=== PATIENT | female | born 1990 ===

== ENCOUNTER → 2022-06-30 | Outpatient (CLI) | payer OTHER ==
[2022-06-30 13:42] LABS: Hematocrit 42.2 % (33.0-51.0); Mean Corpuscular HGB 28.2 pg (26.0-34.0); Mean Corpuscular HGB Conc 33.2 g/dL (31.5-36.5); Mean Corpuscular Volume 85 fL (80-100); Mean Platelet Volume 10.3 fL (9.1-12.4); Platelet Count 299 K/mm3 (150-400); RDW Coefficient Variation 12.7 % (11.7-14.2); Red Blood Cell Count 4.96 M/mm3 (3.80-5.20); White Blood Cell Count 8.33 K/mm3 (4.00-11.30)
[2022-06-30 14:40] LABS: BASOPHILS PERCENT MAN 0 % (0-2); EOSINOPHILS ABSOLUTE MAN 0.16 K/mm3 (0.00-0.68); EOSINOPHILS PERCENT MAN 2 % (0-6); LYMPHOCYTES ABSOLUTE MAN 2.08 K/mm3 (0.84-5.20); LYMPHOCYTES PERCENT MAN 25 % (21-46); MONOCYTES ABSOLUTE MAN 0.74 K/mm3 (0.16-1.47); MONOCYTES PERCENT MAN 9 % (4-13); NEUTROPHILS ABSOLUTE MAN 5.33 K/mm3 (1.96-9.15); SEG NEUTROPHILS PERCENT MAN 64 % (41-73); TOTAL CELLS COUNTED 100
== END | disposition home or self-care (01) ==
LOC: LAB SHORT 12:41
PROVIDERS: Family Medicine
DX: D72.820 Lymphocytosis (symptomatic) (principal)
CPT/HCPCS: 85007; 85027

== ENCOUNTER → 2023-05-14 | Outpatient (CLI) | payer OTHER ==
[2023-05-14 12:21] LABS: BASOPHILS ABSOLUTE AUTO 0.04 K/mm3 (0.00-0.23); BASOPHILS PERCENT AUTO 1 % (0-2); EOSINOPHILS ABSOLUTE AUTO 0.16 K/mm3 (0.00-0.68); EOSINOPHILS PERCENT AUTO 2 % (0-6); Hemoglobin 13.6 g/dL (11.5-16.0); IMMATURE GRAN ABSOLUTE AUTO 0.03 K/mm3 (0.00-0.10); IMMATURE GRAN PERCENT AUTO 0 % (0-1); LYMPHOCYTES ABSOLUTE AUTO 2.65 K/mm3 (0.84-5.20); LYMPHOCYTES PERCENT AUTO 33 % (21-46); MONOCYTES ABSOLUTE AUTO 0.58 K/mm3 (0.16-1.47); MONOCYTES PERCENT AUTO 7 % (4-13); Mean Corpuscular HGB 28.6 pg (26.0-34.0); Mean Corpuscular HGB Conc 33.2 g/dL (31.5-36.5); Mean Corpuscular Volume 86 fL (80-100); Mean Platelet Volume 9.9 fL (9.1-12.4); NEUTROPHILS ABSOLUTE AUTO 4.57 K/mm3 (1.96-9.15); NEUTROPHILS PERCENT AUTO 57 % (41-73); Platelet Count 253 K/mm3 (150-400); RDW Coefficient Variation 11.9 % (11.7-14.2); RDW Standard Deviation 37.9 fL (35.1-46.3); Red Blood Cell Count 4.75 M/mm3 (3.80-5.20); White Blood Cell Count 8.03 K/mm3 (4.00-11.30)
[2023-05-14 12:32] LABS: Albumin/Globulin Ratio 0.9 (0.8-1.8); Bilirubin, Total 0.4 mg/dL (0.1-1.0); Bun/Creatinine Ratio 11.8 (12.0-20.0); Calcium, Blood 9.2 mg/dL (8.5-10.1); Creatinine, Blood 0.76 mg/dL (0.40-1.00); Globulin, Blood 4.3 g/dL (2.2-4.0); Potassium, Blood 3.7 mmol/L (3.5-5.5); Total Protein, Blood 8.3 g/dL (6.4-8.2)
== END ==
LOC: LAB 12:16 → LAB SHORT 12:16
PROVIDERS: Emergency Medicine
DX: R10.9 Unspecified abdominal pain (principal)
CPT/HCPCS: 80053; 83690; 85025

== ENCOUNTER → 2023-10-20 | Outpatient (CLI) | payer OTHER ==
[2023-10-23 21:09] LABS: HPV HIGH RISK BY TMA Not Detected; HPV SOURCE Vaginal
== END | disposition home or self-care (01) ==
LOC: LAB 09:25 → LAB SHORT 09:25
PROVIDERS: Obstetrics & Gynecology
DX: Z01.419 Encounter for gynecological examination (general) (routine) without abnormal findings (principal)
CPT/HCPCS: 87624; G0123

== ENCOUNTER 2023-12-30 09:32 | Day surgery (SDC) | payer OTHER ==
[~2023-12-30] VITALS: Ht 177 cm; Wt 93.6 kg
[2023-12-30] VITALS (15 sets, daily range): BP systolic 103–126; BP diastolic 57–78
[~2023-12-30 09:32] MED LIST: CeFAZolin Sodium 2,000 MG in NS 100 ML IV SCH; FentaNYL Citrate 50 MCG/ML 2 ML Injection ONE; Lactated Ringer's 1,000 ML IV SCH; Rocuronium Bromide 10 MG/ML 5ML Injection IV ONE; propofoL 20 ML IV ONE
[2023-12-30] MEDS ORDERED: Lidocaine HCl 1% 5 ML SYR INJ ONE (10:10)
[2023-12-30] MEDS ORDERED: Midazolam HCl 1MG / ML 2ML Vial IV ONE (10:10)
[2023-12-30] MEDS ORDERED: Ondansetron HCl 2 MG / ML 2ML Vial IV PRN ×2 (10:10→15:45)
[2023-12-30] MEDS ORDERED: FentaNYL Citrate 50 MCG/ML 2 ML Injection IV PRN ×2 (10:10)
[2023-12-30] MEDS ORDERED: HYDROmorphone HCl/Pf 1MG SYR IV PRN ×2 (10:15→15:50)
[2023-12-30] MEDS ORDERED: Bupivacaine 0.5% HCl 5 MG/ML 30MLVIAL ONE (12:32)
[2023-12-30] MEDS ORDERED: Phenylephrine HCl 100 MCG/ML-NS 10MLSYR (1MG/10ML) ONE (13:00)
[2023-12-30] MEDS ORDERED: Ondansetron HCl 2 MG / ML 2ML Vial ONE (13:07)
[2023-12-30] MEDS ORDERED: Dexamethasone Sod Phos 10 MG/ML 1ML VIAL ONE (13:07)
[2023-12-30] MEDS ORDERED: Rocuronium Bromide 10 MG/ML 5ML Injection IV ONE ×2 (13:07→14:10)
[2023-12-30] MEDS ORDERED: Glycopyrrolate 0.2 MG/ML 5ML VIAL ONE (13:23)
[2023-12-30] MEDS ORDERED: FentaNYL Citrate 50 MCG/ML 2 ML Injection ONE (13:45)
[2023-12-30] MEDS ORDERED: Sugammadex Sodium 200 MG/2ML SDV (100 MG/ML) ONE (14:28)
[2023-12-30] MEDS ORDERED: Flumazenil 0.1 MG / ML 5ML Vial ONE (15:16)
[2023-12-30] MEDS ORDERED: Simethicone 80 MG Chew PO PRN (15:40)
[2023-12-30] MEDS ORDERED: HYDROmorphone HCl/Pf 1MG SYR ONE (15:40)
[2023-12-30] MEDS ORDERED: OxyCODONE HCL 5 MG TAB PO PRN (15:40)
[2023-12-30] MEDS ORDERED: Metoclopramide HCl 5MG / ML 2ML Vial IV PRN (15:45)
[2023-12-30] MEDS ORDERED: Lactated Ringer's 1,000 ML IV SCH (15:45)
[2023-12-30] MEDS ORDERED: Naloxone HCl 0.4MG / ML 1ML Vial IV PRN (15:45)
[2023-12-30] MEDS ORDERED: Ondansetron 4 MG TAB PO PRN (15:45)
[2023-12-30] MEDS ORDERED: Metoclopramide HCl 10 MG Tab PO PRN (15:45)
[2023-12-30] MEDS ORDERED: Acetaminophen 500 MG Tab PO PRN (15:50)
[2023-12-30] MEDS ORDERED: DiphenhydrAMINE HCL 25 MG Cap PO PRN (15:50)
[2023-12-30] MEDS ORDERED: Ibuprofen 400 MG Tab PO PRN (15:50)
[2023-12-30] MEDS ORDERED: Ketorolac Tromethamine 30mg Vial IV PRN (15:55)
--- NOTE | 2023-12-30 19:46 | NUR ---
SHIFT SUMMARY POD0 ALONZONiranjan, PT ARRIVED TO THE FLOOR AROUND 1615 TODAY, GROGGY BUT ABLE TO RESPOND WHEN SPOKEN TO, SETTLED IN HER ROOMY BY REGULATED PROGRAM MANAGER, SO AT THE BEDSIDE, PT HAD SOME NAUSEA WHICH WAS TREATED PER EMAR, SOME SHOULDER PAIN WHICH SHE WAS EDUCATED ON R/T SURGERY. ATTEMPTING TO VOID WITH NOC RN. NO ACUTE EVENTS THIS SHIFT, CALL LIGHT IN REACH.
--- NOTE | 2023-12-30 20:30 | NUR ---
TRANSFER CARE FROM NOC RN TO NOC RN. REPORT GIVEN TO FLEX SIMONS RN. PT RESTING WITH EYES CLOSED AND CALL LIGHT IN REACH FOR BEDSIDE REPORT.
--- NOTE | 2023-12-30 20:35 | NUR ---
ASSUMPTION OF CARE RECEIVED REPORT FROM TERENCE WILSON. PT A&O x4. PT ASLEEP AT TIME OF BEDSIDE REPORT. RESPIRATIONS EVEN & UNLABORED. CALL LIGHT IN REACH, BED IN LOWEST POSITION.
--- NOTE | 2023-12-31 04:00 | NUR ---
SHIFT SUMMARY POD 1 CHAN LAP HYSTR. NO ACUTE CHANGES OVERNIGHT. VSS. TOLERATING ORALS, PT REPORTS NO NAUSEA. AMBULATING & VOIDING INDEPENDENTLY. PT REPORTS NO FLATUS/BM. PT REPORTS PAIN TOLERABLE, K-PAD IN USE & MEDICATED PER EMAR. LAP SITE x4 C/D/I. SCANT DRAINAGE ON CHARI PAD. ANTICIPATED D/C TODAY. CALL LIGHT IN REACH, BED IN LOWEST POSITION, WILL REPORT TO DAY RN.
[2023-12-31 05:50] VITALS: BP 109/59
[2023-12-31 07:32] VITALS: BP 107/59
--- NOTE | 2023-12-31 08:35 | NUR ---
DISCHARGE PT EDUCATED ON AND RECEIVED PRINTED DISCHARGE INSTRUCTIONS AND VERB AN UNDERSTANDING. PT REPORTS SHE ALREADY FILLED HER PRESCRIPTIONS. IV DC'D. PT LEFT WITH ALL PERSONAL BELONGINGS AND SIG OTHER AT SIDE.
== END 2023-12-31 08:33 | disposition home or self-care (01) ==
LOC: ORSCMMR 09:32 → ORD 11:00 → ORSCMMR 11:00 → SURS 16:35 → ORSCMMR 12-31 08:33 → SURS 12-31 08:33
PROVIDERS: Obstetrics & Gynecology
PROC: 0UT7FZZ Resection of Bilateral Fallopian Tubes, Via Natural or Artificial Opening With Percutaneous Endoscopic Assistance (ICD-10-PCS; principal; 2023-12-30 11:00)
PROC: 0UT0FZZ Resection of Right Ovary, Via Natural or Artificial Opening With Percutaneous Endoscopic Assistance (ICD-10-PCS; principal; 2023-12-30 11:00)
PROC: 0UT9FZZ Resection of Uterus, Via Natural or Artificial Opening With Percutaneous Endoscopic Assistance (ICD-10-PCS; principal; 2023-12-30 11:00)
DX: N92.0 Excessive and frequent menstruation with regular cycle (principal); N80.03 Adenomyosis of the uterus; N94.6 Dysmenorrhea, unspecified; N80.329 Endometriosis of the posterior cul-de-sac, unspecified depth; N80.123 Deep endometriosis of bilateral ovaries; Q50.5 Embryonic cyst of broad ligament; D25.9 Leiomyoma of uterus, unspecified
CPT/HCPCS: 86850; 86900; 86901; 88307; 94762; A9270; J0690; J1100; J1170; J1885; J2250; J2371; J2405; J2704; J2765; J3010; J7120